=== PATIENT | female | born 1985 | race Caucasian/White ===

== ENCOUNTER → 2018-11-13 | Outpatient (CLI) | payer BC, OTHER ==
--- NOTE | 2018-11-13 18:02 | CT ---
EXAMINATION TYPE: CT abdomen pelvis wo con DATE OF EXAM: 11/13/2018 COMPARISON: None HISTORY: Abdominal pain. CT DLP: 919 mGycm Automated exposure control for dose reduction was used. TECHNIQUE: Helical acquisition of images was performed from the lung bases through the pelvis. FINDINGS: There is patchy subsegmental atelectasis at the lung bases. There is no pleural effusion. Heart size is normal. There is no pericardial effusion. Liver spleen pancreas gallbladder appear normal. Bile ducts are not dilated. There is no adrenal mass. The kidneys have normal size and contour. There is no hydronephrosis. The u reters are not dilated. Bladder distends smoothly. There is no free fluid in the pelvis. There is no inguinal hernia. I see no pelvic mass. Appendix appears normal. I see no intestinal wall thickening. There is no mesenteric edema. There is no sign of free air. There is broad-based umbilical hernia tory t contains fat and transverse colon. No evidence of a bowel obstruction. The bony structures are inta ct. Lumbar spine appears normal. IMPRESSION: NORMAL APPENDIX. UMBILICAL HERNIA. NO HYDRONEPHROSIS BUT THERE IS SLIGHT FULLNESS OF THE RIGHT RENAL PELVIS AND PROXIMAL URETER COMPARED TO THE LEFT. NO URINARY TRACT STONE SEEN. CLINICAL SIGNIFICANCE I S NOT CLEAR. SUBSEGMENTAL ATELECTASIS AT THE POSTERIOR LUNG BASES.
== END ==
LOC: RADCTMAIN 16:44
PROVIDERS: ATTEND Family Medicine
DX: K42.9 Umbilical hernia without obstruction or gangrene (principal)
CPT/HCPCS: 74176

== ENCOUNTER → 2022-05-03 | Outpatient (CLI) | payer OTHER ==
--- NOTE | 2022-05-03 10:30 | CT ---
EXAMINATION TYPE: CT abdomen pelvis wo con CT DLP: 672 mGycm, Automated exposure control for dose reduction was used. DATE OF EXAM: 05/03/2022 10:12 AM COMPARISON: CT abdomen pelvis most recent from 11/13/2018. CLINICAL INDICATION:Female, 37 years old with history of R10.32 Left lower quad pain; TECHNIQUE: Standard CT of the abdomen and pelvis without IV or oral contrast. Lack of IV or oral co ntrast limits evaluation of solid and hollow organ viscera. Coronal and sagittal reformats were perfo rmed. FINDINGS: LOWER CHEST: Unremarkable ABDOMEN LIVER: Unremarkable noncontrast appearance. GALLBLADDER AND BILE DUCTS: Unremarkable. PANCREAS: Unremarkable noncontrast appearance. SPLEEN: Unremarkable noncontrast appearance. ADRENAL GLANDS: Unremarkable noncontrast appearance. KIDNEYS AND URETERS: No evidence of hydronephrosis or renal calculus. No ureteral calculi. PELVIS BLADDER: Incompletely distended but grossly unremarkable. REPRODUCTIVE: Unremarkable. ABDOMEN & PELVIS STOMACH AND BOWEL: Stomach and duodenum are unremarkable. The appendix is within normal limits. There is short segment fat stranding with subtle wall thickening involving the splenic flexure. No diverti cula identified. No pericolonic abscess. No pneumatosis or portal venous gas. No evidence of bowel ob struction. PERITONEUM: No evidence of pneumoperitoneum or free fluid. VASCULATURE: No evidence of aortic aneurysm. MUSCULOSKELETAL: No acute osseous abnormalities LYMPH NODES: No gross evidence for lymphadenopathy. SOFT TISSUE/ABDOMINAL WALL: Unremarkable IMPRESSION: Colonic splenic flexure wall thickening and fat stranding representing nonspecific colitis. Etiologie s include infectious/inflammatory process. Ischemic etiology is not excluded. No pericolonic abscess, pneumatosis, or portal venous gas.
== END | disposition home or self-care (01) ==
LOC: RADCTMAIN 09:46
PROVIDERS: ATTEND Family Medicine
DX: R10.32 Left lower quadrant pain (principal)
CPT/HCPCS: 74176

== ENCOUNTER 2023-06-03 08:11 | Day surgery (SDC) | payer OTHER ==
[2023-06-02 11:12] VITALS: BMI 23.4
[~2023-06-03 08:11] MED LIST: LACTATED RINGERS 1,000 ML IV SCH
[2023-06-03 08:38] VITALS: TEMP 97.8
[2023-06-03 08:40] LABS: Glucose,Whole Blood 101 mg/dL (70-110)
[2023-06-03] MEDS ORDERED: LIDOCAINE 2% INJ 20 MG/ML (2 ML VIAL) ONE (09:20)
[2023-06-03] MEDS ORDERED: PROPOFOL 10 MG/ML 20 ML VIAL IV ONE (09:20)
--- NOTE | 2023-06-03 09:37 | P.PCN ---
Date of Procedure: 06/03/23 Procedure(s) Performed: BRIEF HISTORY: Patient is a 38-year-old, pleasant, white female scheduled for an upper endoscopy as a part of evaluation of long-standing history of GERD. She is been having intermittent episodes of severe heartburn on and off for the last few months despite being on Protonix 40 mg daily and Pepcid at bedtime and hence scheduled for an upper endoscopy to evaluate further.. PROCEDURE PERFORMED: Esophagogastroduodenoscopy with biopsy. PREOPERATIVE DIAGNOSIS: Long-standing history of GERD. IV sedation per anesthesia. PROCEDURE: After informed consent was obtained, the patient was brought into the endoscopy unit. IV sedation was administered by Anesthesia under continuous monitoring. Initially the Olympus GIF-140 video endoscope was inserted into the mouth. Esophagus intubated without any difficulty. It was gradually advanced into the stomach and duodenum and carefully examined. The bulb and the second part of the duodenum appeared normal. The scope at this time was withdrawn to the stomach, adequately insufflated with air, and upon careful examination, mucosa of the antrum, had mild gastritis and biopsies were done from this area. Mucosa of the body, cardia and the fundus appeared normal. There was small amount of retained solid food in the stomach suggestive of gastroparesis The scope was then withdrawn into the esophagus. The GE junction was located at 39 cm from the incisors. The esophagus appeared normal. There were no erosions or ulcerations seen, biopsies were done from the distal esophagus and the patient tolerated the procedure well. IMPRESSION: 1. Small amount of bleeding for the stomach suggestive of gastroparesis. 2. Mild antral gastritis. 3. Normal appearing esophagus with no evidence of esophagitis or Del Angel's esophagus RECOMMENDATIONS: The findings of this examination were discussed with the patient as well as a family. She was advised to continue with Protonix 20 mg daily half hour before dinner time and Pepcid at bedtime and follow antireflux measures. The gastroparesis probably is related to Ozempic that she has been on for the last few months duration. In the meantime recommend small frequent meals, diet modification antireflux measures.
[2023-06-03 10:11] VITALS: BP 119/83; PULSE 76; RESP 20
== END 2023-06-03 10:20 | disposition home or self-care (01) ==
LOC: ORWHC2ENDO 08:11
PROVIDERS: ATTEND Internal Medicine Gastroenterology
DX: K29.50 Unspecified chronic gastritis without bleeding (principal); K20.0 Eosinophilic esophagitis; K21.9 Gastro-esophageal reflux disease without esophagitis; F41.9 Anxiety disorder, unspecified; J45.909 Unspecified asthma, uncomplicated; G47.33 Obstructive sleep apnea (adult) (pediatric); Z79.899 Other long term (current) drug therapy
CPT/HCPCS: 88305; 43239; J2704; J2001